=== PATIENT | male | born 1985 | race Caucasian/White ===

== ENCOUNTER 2018-10-16 12:14 | Emergency (ER) | payer BC ==
--- OUTSIDE RECORDS SUMMARY | 2018-10-16 12:46 | XMS REPORT | Continuity of Care Document ---
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 Sen Varghese MD Primary Care Physician Unavailable Payers Type Date Identification Numbers Payment Provider Subscriber Policy Number: [id number] [facility] Anselmo Nazario PayID: [id number] [address] [address] [place] [address] Advance Directives Description No Information Available Problems Date Description Provider Status Onset: 11/11/2012 Benign essential hypertension Iwona Baez MD Active Onset: 10/28/2012 H/O: coagulation defect Iwona Baez MD Active Onset: 10/28/2012 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 Onset: 09/02/2015 Protein C deficiency disease Iwona Baez MD Active Onset: 09/10/2018 Anxiety state Sen Varghese MD Active Family History Date Family Member(s) Problem(s) Comments : (age 38 Father due to [place] Years) Mother No Current Problems Grandfather due to Colon () - maternal Cancer Social History Type Date Description Comments Sex Unknown ETOH Use Denies alcohol use Tobacco Use Start: Unknown Smoking Pot 5X/ WK Smoking Status Reviewed: 09/18/18 Smoking Pot 5X/ WK Allergies, Adverse Reactions, Alerts Description No Known Drug Allergies Medications Medication Date Status Form Strength Qnty SIG Indications Ordering Provider Hydroxyzine HCL 09/10/ Active Tablets 50mg 90tab 1 tab by F41.9 [email or web address] s mouth three MD Sen times a day as needed Prozac 09/10/ Active Capsules 20mg 30cap 1 by mouth F41.9 Varghese, 2018 s every day MD Sen as directed Xarelto 01/04/ Active Tablets 20mg 30tab 1 tab by [email or web address] Halima, 2015 s mouth every MD Sen day with food Amoxicillin 01/06/ Hx Suspension 250mg/5ML 200ml Take 10 ml J02.9 Evette 2017 - Rec by mouth Maryann, 01/16/ every 12 M.D. 2017 hours for 10 days for throat infection Desloratadine 01/04/ Hx Tablets 5mg 30tab 1 tab by [email or web address] Evette, 2015 - s mouth every Maryann, 11/08/ day as M.D. 2017 needed congestion Xarelto 12/14/ Hx Tablets 15mg 42tab 1 tab by [email or web address] Evette 2015 - s mouth twice Maryann, 01/04/ a day x21 M.D. 2016 days Warfarin Sodium 11/11/ Hx Tablets 10mg 30tab / to 1 by Nestor 2012 - s mouth every Iwona 12/14/ day, MD yvette 2015 directed Immunizations CPT Code Status Date Vaccine Lot # [id number] Given 07/16/2018 Influenza Virus Vaccine, Quadrivalent, 36 Mos+, [id number] Given 11/08/2016 Tdap injection [id number] Given 10/15/2014 flu vaccination [id number] Given 06/13/2013 flu vaccination Vital Signs Date Vital Result Comment 09/18/2018 2:30pm BP Systolic 130 mmHg BP Diastolic 72 mmHg Body Temperature 97.8 F Heart Rate 64 /min Respiratory Rate 16 /min Height 68 inches 5'8" Weight 187.00 lb BMI (Body Mass Index) 28.4 kg/m2 BSA (Body Surface Area) 1.99 m2 [place] body weight in kilograms 70 kg O2 % BldC Oximetry 97 % Ra Pain Level 0 09/10/2018 8:47am BP Systolic Sitting Left Arm 130 mmHg BP Diastolic Sitting Left Arm 86 mmHg Body Temperature 97.5 F Heart Rate 117 /min Respiratory Rate 16 /min Height 68 inches 5'8" Weight 186.00 lb BMI (Body Mass Index) 28.3 kg/m2 BSA (Body Surface Area) 1.98 m2 [place] body weight in kilograms 70 kg O2 % BldC Oximetry 98 % 08/01/2018 2:51pm BP Systolic 132 mmHg BP Diastolic 80 mmHg Body Temperature 96.5 F Heart Rate 68 /min Respiratory Rate 18 /min Height 68 inches 5'8" Weight 199.00 lb BMI (Body Mass Index) 30.3 kg/m2 BSA (Body Surface Area) 2.04 m2 [place] body weight in kilograms 70 kg O2 % BldC Oximetry 98 % 07/16/2018 8:40am BP Systolic Sitting Right Arm 150 mmHg BP Diastolic Sitting Right Arm 90 mmHg Body Temperature 97.5 F Heart Rate 97 /min Respiratory Rate 16 /min Height 68 inches 5'8" Weight 204.12 lb BMI (Body Mass Index) 31.0 kg/m2 BSA (Body Surface Area) 2.06 m2 [place] body weight in kilograms 70 kg O2 % BldC Oximetry 98 % 03/23/2017 2:19pm BP Systolic Sitting Left Arm 128 mmHg BP Diastolic Sitting Left Arm 82 mmHg Height 68 inches 5'8" Weight 207.12 lb BMI (Body Mass Index) 31.5 kg/m2 BSA (Body Surface Area) 2.07 m2 [place] body weight in kilograms 70 kg 01/06/2017 11:28am BP Systolic Sitting Right Arm 138 mmHg BP Diastolic Sitting Right Arm 88 mmHg Body Temperature 97.1 F Heart Rate 78 /min Height 68 inches 5'8" Weight 204.50 lb BMI (Body Mass Index) 31.1 kg/m2 BSA (Body Surface Area) 2.06 m2 11/08/2016 10:45am BP Systolic 138 mmHg BP Diastolic 92 mmHg Body Temperature 97.6 F Heart Rate 82 /min Respiratory Rate 18 /min Height 68 inches 5'8" Weight 216.00 lb BMI (Body Mass Index) 32.8 kg/m2 BSA (Body Surface Area) 2.11 m2 O2 % BldC Oximetry 98 % 01/05/2016 9:03am BP Systolic Sitting Left Arm 137 mmHg BP Diastolic Sitting Left Arm 80 mmHg Body Temperature 96.4 F Heart Rate 60 /min Respiratory Rate 16 /min Height 68 inches 5'8" Weight 213.00 lb BMI (Body Mass Index) 32.4 kg/m2 BSA (Body Surface Area) 2.10 m2 12/15/2015 9:16am BP Systolic Sitting Left Arm 148 mmHg BP Diastolic Sitting Left Arm 86 mmHg Heart Rate 64 /min Respiratory Rate 19 /min Height 68 inches 5'8" Weight 213.00 lb BMI (Body Mass Index) 32.4 kg/m2 BSA (Body Surface Area) 2.10 m2 Results Test Date Facility Test Result H/L Range Note LDL Cholesterol 09/12/2018 [facility] Cholesterol 132 mg/dL <200 1, [address] [place] [address] [phone] Triglycerides 81 mg/dL <150 3 HDL Cholesterol 34 mg/dL Low >40 4 LDL-Cholesterol 82 mg/dL < 100 5 Laboratory test 09/12/2018 [facility] Troponin-I < 0.015 [address] ng/[place] [address] [phone] Laboratory test 09/12/2018 [facility] Troponin-I < 0.015 [address] ng/mL [place], [place] [id number] [phone] CBC W/Automated 09/11/2018 [facility] White Blood Count 9.1 K/uL 3.4-[address] [place] [address] [phone] Red Blood Count 5.18 M/uL N 4.20-5.80 Hemoglobin 14.8 gm/dL N 12.8-17.0 Hematocrit 44.5 % N 38.0-48.0 Mean Cell Volume 85.9 fl N 80.0-96.0 Mean Corpuscular HGB 28.6 pg N 27.0-33.0 Mean Corpuscular HGB Conc 33.3 g/dL N 31.7-36.0 Platelet Count 300 K/uL N 155-360 Red Cell Distri Width SD 42.1 fl N 36-51 Red Cell Distri Width %CV 13.7 % N 11.6-15.8 Mean Platelet Volume 9.6 fL N 6.6-10.6 Neut% 61.0 % N 33.0-73.0 Lymph % 29.0 % N 20.0-42.0 Williamson % 7.1 % N 0.0-10.0 Eo% 2.0 % N 0.0-6.6 Bas% 0.9 % N 0.0-1.1 Neut# 5.57 K/uL N 1.8-7.0 Lymph # 2.65 K/uL N 1.0-4.0 Williamson # 0.65 K/uL N 0.0-0.8 Eos # 0.18 K/uL N 0.0-0.5 Baso # 0.08 K/uL N 0.0-0.1 Comprehensive Metabolic 09/11/2018 [facility] Glucose 93 mg/dL N 74-106 Panel [address] [place], [place] [address] [phone] BUN 12 mg/dL N 7-18 Creatinine 0.9 mg/dL N 0.6-1.3 Glom Filtration Rate, Estimate >60 mL/min >60 If >60 mL/min >60 9 BUN/Creat 13.3 ratio Sodium 141 mmol/L N 136-145 Potassium 4.0 mmol/L N 3.5-5.1 Chloride 107 mmol/L N 98-107 Carbon Dioxide 29 mmol/L N 21-32 Anion Gap 5 mEq/L Low 8-16 Calcium 9.0 mg/dL N 8.5-10.1 Total Protein 8.0 g/dL N 6.4-8.2 Albumin 3.9 g/dL N 3.4-5.0 Globulin 4.1 g/dL N 1.9-4.3 Alb/Glob 1.0 ratio Bilirubin,Total 0.5 mg/dL N 0.2-1.0 Sgot/Ast 15 U/L N 15-37 SGPT/Alt 31 U/L N 12-78 Alkaline Phosphatase 63 U/L N 45-117 Laboratory test 09/11/2018 [facility] Troponin-I < 0.015 ng/mL 10 finding [address] [place], [place] [id number] [phone] Protime 09/11/2018 [facility] Protime 14.5 seconds High 12.0-1 [address] [facility] [address] [place] [address] [phone] Inr 1.1 N 0.9-1.1 11 Laboratory test 09/08/2018 [facility] Troponin-I < 0.015 ng/mL 12, 13 finding [address] [place], [place] [id number] [phone] D-Dimer, Quantitative < 0.27 ug/mL 14 Comprehensive Metabolic 09/08/2018 [facility] Glucose 126 mg/dL High 74-106 Panel [address] [place], [place] [address] [phone] BUN 15 mg/dL N 7-18 Creatinine 1.0 mg/dL N 0.6-1.3 Glom Filtration Rate, Estimate >60 mL/min >60 If >60 mL/min >60 15 BUN/Creat 15.0 ratio Sodium 139 mmol/L N 136-145 Potassium 3.6 mmol/L N 3.5-5.1 Chloride 106 mmol/L N 98-107 Carbon Dioxide 27 mmol/L N 21-32 Anion Gap 6 mEq/L Low 8-16 Calcium 8.9 mg/dL N 8.5-10.1 Total Protein 8.0 g/dL N 6.4-8.2 Albumin 3.8 g/dL N 3.4-5.0 Globulin 4.2 g/dL N 1.9-4.3 Alb/Glob 0.9 ratio Bilirubin,Total 0.7 mg/dL N 0.2-1.0 Sgot/Ast 17 U/L N 15-37 SGPT/Alt 43 U/L N 12-78 Alkaline Phosphatase 67 U/L N 45-117 CBC W/Automated Diff 09/08/2018 [facility] White Blood 5.8 K/uL N 3.4-10.[address] [place] [address] [phone] Red Blood Count 4.99 M/uL N 4.20-5.80 Hemoglobin 14.3 gm/dL N 12.8-17.0 Hematocrit 42.8 % N 38.0-48.0 Mean Cell Volume 85.8 fl N 80.0-96.0 Mean Corpuscular HGB 28.7 pg N 27.0-33.0 Mean Corpuscular HGB Conc 33.4 g/dL N 31.7-36.0 Platelet Count 344 K/uL N 155-360 Red Cell Distri Width SD 41.6 fl N 36-51 Red Cell Distri Width %CV 13.6 % N 11.6-15.8 Mean Platelet Volume 9.4 fL N 6.6-10.6 Neut% 66.6 % N 33.0-73.0 Lymph % 22.2 % N 20.0-42.0 Williamson % 8.1 % N 0.0-10.0 Eo% 2.4 % N 0.0-6.6 Bas% 0.7 % N 0.0-1.1 Neut# 3.84 K/uL N 1.8-7.0 Lymph # 1.28 K/uL N 1.0-4.0 Williamson # 0.47 K/uL N 0.0-0.8 Eos # 0.14 K/uL N 0.0-0.5 Baso # 0.04 K/uL N 0.0-0.1 Laboratory test 09/08/2018 [facility] Troponin-I < 0.015 ng/mL 16 finding [address] [place] [address] [phone] Aot Request 09/08/2018 [facility] Aot Request Test(s) added 17 [address] [place] [address] [phone] Tests to be added: d dimer Comprehensive Metabolic 08/27/2018 [facility] Glucose 98 mg/dL N 74-106 18 Panel [address] [place] [address] [phone] BUN 9 mg/dL N 7-18 Creatinine 1.0 mg/dL N 0.6-1.3 Glom Filtration Rate, Estimate >60 mL/min >60 If >60 mL/min >60 19 BUN/Creat 9.0 ratio Sodium 139 mmol/L N 136-145 Potassium 4.2 mmol/L N 3.5-5.1 Chloride 104 mmol/L N 98-107 Carbon Dioxide 28 mmol/L N 21-32 Anion Gap 7 mEq/L Low 8-16 Calcium 8.8 mg/dL N 8.5-10.1 Total Protein 7.4 g/dL N 6.4-8.2 Albumin 4.0 g/dL N 3.4-5.0 Globulin 3.4 g/dL N 1.9-4.3 Alb/Glob 1.2 ratio Bilirubin,Total 0.7 mg/dL N 0.2-1.0 Sgot/Ast 18 U/L N 15-37 SGPT/Alt 27 U/L N 12-78 Alkaline Phosphatase 75 U/L N 45-117 CBC W/Automated Diff 08/27/2018 [facility] White Blood 9.6 K/uL N 3.4-10.5 [address] [place] [address] [phone] Red Blood Count 5.23 M/uL N 4.20-5.80 Hemoglobin 15.0 gm/dL N 12.8-17.0 Hematocrit 45.8 % N 38.0-48.0 Mean Cell Volume 87.6 fl N 80.0-96.0 Mean Corpuscular HGB 28.7 pg N 27.0-33.0 Mean Corpuscular HGB Conc 32.8 g/dL N 31.7-36.0 Platelet Count 178 K/uL N 155-360 Red Cell Distri Width SD 44.8 fl N 36-51 Red Cell Distri Width %CV 14.0 % N 11.6-15.8 Mean Platelet Volume 10.3 fL N 6.6-10.6 Neut% 78.8 % High 33.0-73.0 Lymph % 9.4 % Low 20.0-42.0 Williamson % 11.1 % High 0.0-10.0 Eo% 0.4 % N 0.0-6.6 Bas% 0.3 % N 0.0-1.1 Neut# 7.56 K/uL High 1.8-7.0 Lymph # 0.90 K/uL Low 1.0-4.0 Williamson # 1.06 K/uL High 0.0-0.8 Eos # 0.04 K/uL N 0.0-0.5 Baso # 0.03 K/uL N 0.0-0.1 Slide Review 08/27/2018 [facility] Slide Review (SEE NOTE) [address] [place] [address] [phone] Ua RFX Micro & 08/27/2018 [facility] Urine Color YELLOW Yellow Culture II [address] [place] [address] [phone] Urine Clarity CLEAR Clear Urine Glucose - Dipstick NEGATIVE mg/dL Negative Urine Bilirubin - Dipstick NEGATIVE Negative Urine Ketone NEGATIVE mg/dL Negative Urine Specific [place] 1.015 N 1.010-1.030 Urine Blood NEGATIVE Negative Urine PH 7.5 N 6.5-7.5 Urine Protein - Dipstick NEGATIVE mg/dL Negative Urine Urobilinogen - Dipstick 0.2 E.U./dL N 0.2-1.0 Urine Nitrite - Dipstick NEGATIVE Negative Urine Leuk Esterase NEGATIVE Negative Source: URINE, CLEAN CAT <SEE NOTE> 21 CBC W/Automated 08/01/[address] White Blood 7.4 K/uL N 3.4- 10.5 [address] [place] [address] [phone] Red Blood Count 4.91 M/uL N 4.20-5.80 Hemoglobin 14.1 gm/dL N 12.8-17.0 Hematocrit 42.9 % N 38.0-48.0 Mean Cell Volume 87.4 fl N 80.0-96.0 Mean Corpuscular HGB 28.7 pg N 27.0-33.0 Mean Corpuscular HGB Conc 32.9 g/dL N 31.7-36.0 Platelet Count 223 K/uL N 155-360 Red Cell Distri Width SD 44.0 fl N 36-51 Red Cell Distri Width %CV 14.1 % N 11.6-15.8 Mean Platelet Volume 10.4 fL N 6.6-10.6 Neut% 54.4 % N 33.0-73.0 Lymph % 32.5 % N 20.0-42.0 Williamson % 8.7 % N 0.0-10.0 Eo% 3.7 % N 0.0-6.6 Bas% 0.7 % N 0.0-1.1 Neut# 4.03 K/uL N 1.8-7.0 Lymph # 2.40 K/uL N 1.0-4.0 Williamson # 0.64 K/uL N 0.0-0.8 Eos # 0.27 K/uL N 0.0-0.5 Baso # 0.05 K/uL N 0.0-0.1 Comprehensive Metabolic 08/01/[email or web address] Glucose 99 mg/dL N 74 -106 Panel [address] [place] [address] [phone] BUN 21 mg/dL High 7-18 Creatinine 1.1 mg/dL N 0.6-1.3 Glom Filtration Rate, Estimate >60 mL/min >60 If >60 mL/min >60 23 BUN/Creat 19.0 ratio Sodium 138 mmol/L N 136-145 Potassium 3.8 mmol/L N 3.5-5.1 Chloride 102 mmol/L N 98-107 Carbon Dioxide 29 mmol/L N 21-32 Anion Gap 7 mEq/L Low 8-16 Calcium 8.8 mg/dL N 8.5-10.1 Total Protein 7.8 g/dL N 6.4-8.2 Albumin 4.3 g/dL N 3.4-5.0 Globulin 3.5 g/dL N 1.9-4.3 Alb/Glob 1.2 ratio Bilirubin,Total 0.6 mg/dL N 0.2-1.0 Sgot/Ast 19 U/L N 15-37 SGPT/Alt 30 U/L N 12-78 Alkaline Phosphatase 68 U/L N 45-117 LDL Cholesterol Profile 08/01/[address] Cholesterol 155 mg/dL <482 81 [address] [place], [place] [address] [phone] Triglycerides 88 mg/dL <150 25 HDL Cholesterol 43 mg/dL >40 26 LDL-Cholesterol 94 mg/dL < 100 27 Glycohemoglobin A1c 08/01/[address] Glycohemoglobin 5.7 % N 4.2-6.3 28 4077 [facility] (A1c) [place] [address] [phone] eAG 117 mg/dL Throat 01/06/[address] Throat BETA Abnormal 29, [address] [place] [address] St[place] [address] Screen <SEE NOTE> [phone] Quantity MODERATE N Recommended Therapy: PENICILLIN OR AM <SEE NOTE> N 31 Alternative Therapy: ERYTHROMYCIN MAY <SEE NOTE> N 32 Comprehensive 11/08/2016 [facility] Glucose 109 mg/dL High 74-106 33 Metabolic Panel [address] [place], [place] [address] [phone] BUN 20 mg/dL High 7-18 Creatinine 1.0 mg/dL N 0.6-1.3 Glom Filtration Rate, Estimate >60 mL/min >60 If >60 mL/min >60 34 BUN/Creat 20.0 ratio Sodium 142 mmol/L N 136-145 Potassium 3.7 mmol/L N 3.5-5.1 Chloride 107 mmol/L N 98-107 Carbon Dioxide 29 mmol/L N 21-32 Anion Gap 6 mEq/L Low 8-16 Calcium 8.3 mg/dL Low 8.5-10.1 Total Protein 7.2 g/dL N 6.4-8.2 Albumin 4.0 g/dL N 3.4-5.0 Globulin 3.2 g/dL N 1.9-4.3 Alb/Glob 1.3 ratio Bilirubin,Total 0.3 mg/dL N 0.2-1.0 Sgot/Ast 18 U/L N 15-37 SGPT/Alt 28 U/L N 12-78 Alkaline Phosphatase 63 U/L N 45-117 Reflex add FT3? Y Reflex add FT4? Y Glycohemoglobin A1c 11/08/2016 [facility] Glycohemoglobin 6.0 % N 4.2-6.[address] (A1c) [place] [address] [phone] eAG 126 mg/dL LDL Cholesterol Profile 11/08/2016 [facility] Cholesterol 177 mg/dL <[address] [place], [place] [address] [phone] Triglycerides 170 mg/dL High <150 37 HDL Cholesterol 38 mg/dL Low >40 38 LDL-Cholesterol 105 mg/dL < 100 39 Reflex add FT3? Y Reflex add FT4? Y TSH Reflex FT4 11/08/2016 [facility] Thyroid Stim 0.78 uIU/mL N 0.30-4.20 And/Or FT3 [address] Hormone [place], [place] [address] [phone] Reflex add FT3? Y Reflex add FT4? Y Comprehensive Metabolic 12/15/2015 [facility] Glucose 97 mg/dL 74-[address] [place], [place] [address] [phone] BUN 16 mg/dL 7-18 Creatinine 0.9 mg/dL 0.6-1.3 Glom Filtration Rate, Estimate >60 mL/min >60 If >60 mL/min >60 40 BUN/Creat 17.7 ratio Sodium 140 mmol/L 136-145 Potassium 3.9 mmol/L 3.5-5.1 Chloride 105 mmol/L 98-107 Carbon Dioxide 29 mmol/L 21-32 Anion Gap 6 mEq/L Low 8-16 Calcium 8.7 mg/dL 8.5-10.1 Total Protein 7.7 g/dL 6.4-8.2 Albumin 4.3 g/dL 3.4-5.0 Globulin 3.4 g/dL 1.9-4.3 Alb/Glob 1.3 ratio Bilirubin,Total 0.5 mg/dL 0.2-1.0 Sgot/Ast 27 U/L 15-37 SGPT/Alt 33 U/L 12-78 Alkaline Phosphatase 61 U/L 45-117 CBC W/Automated Diff 12/15/2015 [facility] White Blood 6.7 K/uL 3.4-10.[address] [place] [address] [phone] Red Blood Count 4.88 M/uL 4.20-5.80 Hemoglobin 14.1 gm/dL 12.8-17.0 Hematocrit 42.1 % 38.0-48.0 Mean Cell Volume 86.3 fl 80.0-96.0 Mean Corpuscular HGB 28.9 pg 27.0-33.0 Mean Corpuscular HGB Conc 33.5 g/dL 31.7-36.0 Platelet Count 187 K/uL 150-400 Red Cell Distri Width SD 44.0 fl 36-51 Red Cell Distri Width %CV 14.1 % 11.6-15.8 Mean Platelet Volume 10.7 fL High 6.6-10.6 Neut% 61.7 % 33.0-73.0 Lymph % 27.0 % 17.0-56.0 Williamson % 7.3 % 0.0-10.0 Eo% 3.3 % 0.0-5.0 Bas% 0.7 % 0.1-1.0 Neut# 4.13 K/uL 1.8-7.0 Lymph # 1.81 K/uL 1.8-7.0 Williamson # 0.49 K/uL 0.0-0.8 Eos # 0.22 K/uL 0.0-0.5 Baso # 0.05 K/uL Low 0.1-0.2 Protime 12/15/2015 [facility] Protime 13.7 seconds 12.1-14.9 [address] [place] [address] [phone] Inr 1.0 0.9-1.1 41 Laboratory test 12/15/2015 [facility] Act Partial 27.3 23.9-34.3 42 finding [address] [place] [address] [phone] LDL Cholesterol 12/15/2015 [facility] Cholesterol 188 mg/dL <200 43 Profile [address] [place] [address] [phone] Triglycerides 124 mg/dL <150 44 HDL Cholesterol 36 mg/dL Low >40 45 LDL-Cholesterol 127 mg/dL < 100 46 Protime 06/04/2015 [facility] Protime 26.4 seconds High 12.0-14.4 [address] [place] [address] [phone] Inr 2.4 High 0.9-1.1 47 Laboratory test 04/30/2015 [facility] Inr 2.5 High 0.9-1.1 48 finding [address] [place] [address] [phone] Protime 04/30/2015 [facility] Protime 27.6 seconds High 12.0-14.4 [address] [place] [address] [phone] Protime 04/03/2015 [facility] Protime 25.2 seconds High 12.0-14.4 [address] [place] [address] [phone] Inr 2.3 High 0.9-1.1 49 Protime 03/19/2015 [facility] Protime 33.6 seconds High 12.0-14.4 [address] [place] [address] [phone] Inr 3.3 High 0.9-1.1 50 Protime 03/05/2015 [facility] Protime 38.8 seconds High 12.1-14.9 [address] [place] [address] [phone] Inr 3.9 High 0.9-1.1 51 Protime 02/19/2015 [facility] Protime 22.1 seconds High 12.1-14.9 [address] [place] [address] [phone] Inr 1.9 High 0.9-1.1 52 Protime 02/09/2015 [facility] Protime 18.4 seconds High 12.0-14.4 [address] [place], [place] [address] [phone] Inr 1.5 High 0.9-1.1 53 Protime 12/04/2014 N2N/CCD Import Inr 2.7 High 0.9-1.1 54 Protime 28.1 s High 12.0-14.4 Basic Metabolic Panel 10/29/2014 N2N/CCD Import Anion Gap 6 mEq/L Low 8- 16 BUN 15 mg/dL 7-18 BUN/Creat 15.0 ratio Calcium 8.9 mg/dL 8.5-10.1 Carbon Dioxide 28 mmol/L 21-32 Chloride 106 mmol/L 98-107 Creatinine 1.0 mg/dL 0.6-1.3 Glom Filtration Rate, Estimate >60 mL/min >60 Glucose 96 mg/dL 74-106 If >60 mL/min >60 55 Potassium 3.9 mmol/L 3.5-5.1 Sodium 140 mmol/L 136-145 CBC 10/29/2014 N2N/CCD Import Hematocrit 42.3 % 38.0-48.0 Hemoglobin 13.9 gm/dL 12.8-17.0 Mean Cell Volume 87.2 fl 80.0-96.0 Mean Corpuscular HGB 28.7 pg 27.0-33.0 Mean Corpuscular HGB Conc 32.9 g/dL 31.7-36.0 Mean Platelet Volume 10.5 fL 6.6-10.6 Platelet Count 186 K/uL 150-400 Red Blood Count 4.85 M/uL 4.20-5.80 Red Cell Distri Width %CV 13.6 % 11.6-15.8 White Blood Count 6.6 K/uL 3.4-10.5 LDL Cholesterol Profile 10/29/2014 N2N/CCD Import Cholesterol 182 mg/dL < 200 56 HDL Cholesterol 39 mg/dL > 40 57 LDL-Cholesterol 123 mg/dL < 100 58 Triglycerides 100 mg/dL < 150 59 Liver Function Tests 10/29/2014 N2N/CCD Import Alb/Glob 1.5 ratio Albumin 4.4 g/dL 3.4-5.0 Alkaline Phosphatase 63 U/L 45-117 Bilirubin,Direct < 0.1 mg/dL 0.0-0.2 Bilirubin,Indirect 0.4 mg/dL 0.0-0.9 Bilirubin,Total 0.5 mg/dL 0.2-1.0 Globulin 2.9 g/dL 1.9-4.3 SGPT/Alt 32 U/L 12-78 Sgot/Ast 29 U/L 15-37 Total Protein 7.3 g/dL 6.4-8.2 Protime 10/29/2014 N2N/CCD Import Inr 2.0 High 0.9-1.1 60 Protime 22.7 s High 12.1-14.9 Protime 10/02/2014 N2N/CCD Import Inr 2.6 High 0.9-1.1 61 Protime 27.4 s High 12.1-14.9 Protime 08/21/2014 N2N/CCD Import Inr 2.2 High 0.9-1.1 62 Protime 24.1 s High 12.1-14.9 Protime 06/23/2014 N2N/CCD Import Inr 2.2 High 0.9-1.1 63 Protime 24.2 s High 12.1-14.9 Protime 06/09/2014 N2N/CCD Import Inr 2.6 High 0.9-1.1 64 Protime 27.4 s High 12.1-14.9 Protime 05/29/2014 N2N/CCD Import Inr 1.5 High 0.9-1.1 65 Protime 18.1 s High 12.1-14.9 Protime 03/20/2014 N2N/CCD Import Inr 2.3 High 0.9-1.1 66 Protime 25.3 s High 12.0-14.4 Protime 02/28/2014 N2N/CCD Import Inr 3.4 High 0.9-1.1 67 Protime 33.6 s High 12.1-14.9 Protime 01/30/2014 N2N/CCD Import Inr 2.3 High 0.9-1.1 68 Protime 24.9 s High 12.1-14.9 Protime 01/15/2014 N2N/CCD Import Inr 1.9 High 0.9-1.1 69 Protime 21.2 s High 12.1-14.9 Protime 01/01/2014 N2N/CCD Import Inr 2.0 High 0.9-1.1 70 Protime 22.2 s High 12.1-14.9 Protime 12/19/2013 N2N/CCD Import Inr 1.9 High 0.9-1.1 71 Protime 21.8 s High 12.1-14.9 Protime 11/28/2013 N2N/CCD Import Inr 1.5 High 0.9-1.1 72 Protime 18.0 s High 12.0-14.4 Protime 10/15/2013 N2N/CCD Import Inr 2.5 High 0.9-1.1 73 Protime 27.2 s High 12.0-14.4 Laboratory test finding 09/09/2013 N2N/CCD Import Inr 2.82 High 0.85- 1.06 Laboratory test finding 08/15/2013 N2N/CCD Import Inr 1.75 High 0.85- 1.06 74 Laboratory test finding 07/19/2013 N2N/CCD Import Inr 2.40 High 0.85- 1.06 75 Laboratory test finding 06/19/2013 N2N/CCD Import Inr 2.42 High 0.87- 0.97 Laboratory test finding 06/04/2013 N2N/CCD Import Inr 2.00 High 0.87- 0.97 Laboratory test finding 05/30/2013 N2N/CCD Import Inr 3.36 High 0.87- 0.97 Inr/Protime 05/21/2013 N2N/CCD Import Inr 3.63 High 0.87-0.97 Laboratory test finding 04/19/2013 N2N/CCD Import Inr 2.26 High 0.87- 0.97 Laboratory test finding 03/19/2013 N2N/CCD Import Inr 2.45 High 0.87- 0.97 Laboratory test finding 03/12/2013 N2N/CCD Import Inr 1.54 High 0.87- 0.97 Laboratory test finding 02/05/2013 N2N/CCD Import Inr 2.00 High 0.87- 0.97 Laboratory test finding 01/03/2013 N2N/CCD Import Inr 2.01 High 0.87- 0.97 Laboratory test finding 12/04/2012 N2N/CCD Import Inr 2.50 High 0.87- 0.97 Laboratory test finding 11/19/2012 N2N/CCD Import Inr 3.51 High 0.87- 0.97 76 Laboratory test finding 11/12/2012 N2N/CCD Import Inr 2.88 High 0.87- 0.97 77 Laboratory test finding 11/01/2012 N2N/CCD Import Inr 3.81 High 0.87- 0.97 78 Inr/Protime 10/29/2012 N2N/CCD Import Inr 2.36 High 0.87-0.97 79 1 CHEST PAIN 2 Reference Guidelines*: Desirable: ........... < 200 mg/dL Borderline High: ..... 200-239 mg/dL High: ................ >=240 mg/dL * The National Cholesterol Education Program (NCEP) 3 Reference Guidelines*: Normal: ............. < 150 mg/dL Borderline High: .... 150-199 mg/dL High: ............... 200-499 mg/dL Very High: .......... > 500 mg/dL * Source: National Cholesterol Education Program (NCEP) 4 Reference Guidelines*: Low HDL: ..... < 40 mg/dL Normal: ..... 40-60 mg/dL Desirable: ... > 60 mg/dL *The National Cholesterol Education Program(NCEP) 5 Reference Guidelines*: Optimal:........... <100 mg/dL Near Optimal....... 100-129 mg/dL Borderline High.... 130-159 mg/dL High............... 160-189 mg/dL Very High.......... >=190 mg/dL * Source: National Cholesterol Education Program (NCEP) 6 0.0 - 0.045 ng/mL: Normal 0.046 - 0.5 ng/mL: Suggestive 0.6 - 1.5 ng/mL: Consistent 7 0.0 - 0.045 ng/mL: Normal 0.046 - 0.5 ng/mL: Suggestive 0.6 - 1.5 ng/mL: Consistent 8 CP WITH WARNESS,NAUSEA 9 Note: Persistent reduction for 3 months or more in an eGFR <60 mL/min/1.73 m2 defines CKD. Patients with eGFR values >/=60 mL/min/1.73 m2 may also have CKD if evidence of persistent proteinuria is present. The original MDRD equation for estimated GFR is not valid for patients less than 18 years of age. Additional information may be found at www.kdoqi.org. 10 0.0 - 0.045 ng/mL: Normal 0.046 - 0.5 ng/mL: Suggestive 0.6 - 1.5 ng/mL: Consistent 11 THERAPEUTIC INR RANGE: 2.0 - 3.0 DVT, Pulmonary embolus, prophylaxis against venous thrombosis or systemic embolization in high risk patients. 2.5 - 3.5 Mechanical heart valves 12 WEAK,LIGHT HEADED 13 0.0 - 0.045 ng/mL: Normal 0.046 - 0.5 ng/mL: Suggestive 0.6 - 1.5 ng/mL: Consistent 14 <=0.49 ug/mL - Low likelihood of DIC, DVT or Pulmonary Embolism >0.49 ug/mL - Additional testing should be done to rule out DIC, DVT, or Pulmonary embolism as clinically indicated. ([facility] has established a 97.89% negative predictive value for thrombotic disease when a cutoff value of 0.5 ug/mL is used.) 15 Note: Persistent reduction for 3 months or more in an eGFR <60 mL/min/1.73 m2 defines CKD. Patients with eGFR values >/=60 mL/min/1.73 m2 may also have CKD if evidence of persistent proteinuria is present. The original MDRD equation for estimated GFR is not valid for patients less than 18 years of age. Additional information may be found at www.[email or web address]. 16 0.0 - 0.045 ng/mL: Normal 0.046 - 0.5 ng/mL: Suggestive 0.6 - 1.5 ng/mL: Consistent 17 Tests: d dimer Instructions: 18 BACK PAIN POSS KINDEY INFECT 19 Note: Persistent reduction for 3 months or more in an eGFR <60 mL/min/1.73 m2 defines CKD. Patients with eGFR values >/=60 mL/min/1.73 m2 may also have CKD if evidence of persistent proteinuria is present. The original MDRD equation for estimated GFR is not valid for patients less than 18 years of age. Additional information may be found at www.[email or web address]. 20 Instrument flagged sample for slide review. Less than 10% Bands seen, no other immature WBC's seen. RBC morphology essentially normal. Platelet estimate=NORMAL 21 URINE, CLEAN CATCH 22 Z00.00 23 Note: Persistent reduction for 3 months or more in an eGFR <60 mL/min/1.73 m2 defines CKD. Patients with eGFR values >/=60 mL/min/1.73 m2 may also have CKD if evidence of persistent proteinuria is present. The original MDRD equation for estimated GFR is not valid for patients less than 18 years of age. Additional information may be found at www.kdoqi.org. 24 Reference Guidelines*: Desirable: ........... < 200 mg/dL Borderline High: ..... 200-239 mg/dL High: ................ >=240 mg/dL * The National Cholesterol Education Program (NCEP) 25 Reference Guidelines*: Normal: ............. < 150 mg/dL Borderline High: .... 150-199 mg/dL High: ............... 200-499 mg/dL Very High: .......... > 500 mg/dL * Source: National Cholesterol Education Program (NCEP) 26 Reference Guidelines*: Low HDL: ..... < 40 mg/dL Normal: ..... 40-60 mg/dL Desirable: ... > 60 mg/dL *The National Cholesterol Education Program(NCEP) 27 Reference Guidelines*: Optimal:........... <100 mg/dL Near Optimal....... 100-129 mg/dL Borderline High.... 130-159 mg/dL High............... 160-189 mg/dL Very High.......... >=190 mg/dL * Source: National Cholesterol Education Program (NCEP) 28 Elevated levels of HbA1c suggest the need for more aggressive treatment of glycemia. The [place] [employer] recommends that a primary goal of therapy should be a HbA1c of <7% and that physicians should re-evaluate the treatment regimen in patients with HbA1c values consistently >8%. 29 J02.9 30 BETA STREPTOCOCCUS GROUP A 31 PENICILLIN OR AMPICILLIN. 32 ERYTHROMYCIN MAY BE USED IN PENICILLIN ALLERGIC INDIVIDUALS 33 I10 34 Note: Persistent reduction for 3 months or more in an eGFR <60 mL/min/1.73 m2 defines CKD. Patients with eGFR values >/=60 mL/min/1.73 m2 may also have CKD if evidence of persistent proteinuria is present. The original MDRD equation for estimated GFR is not valid for patients less than 18 years of age. Additional information may be found at www.kdoqi.org. 35 Elevated levels of HbA1c suggest the need for more aggressive treatment of glycemia. The [place] [employer] recommends that a primary goal of therapy should be a HbA1c of <7% and that physicians should re-evaluate the treatment regimen in patients with HbA1c values consistently >8%. 36 Reference Guidelines*: Desirable: ........... < 200 mg/dL Borderline High: ..... 200-239 mg/dL High: ................ >=240 mg/dL * The National Cholesterol Education Program (NCEP) 37 Reference Guidelines*: Normal: ............. < 150 mg/dL Borderline High: .... 150-199 mg/dL High: ............... 200-499 mg/dL Very High: .......... > 500 mg/dL * Source: National Cholesterol Education Program (NCEP) 38 Reference Guidelines*: Low HDL: ..... < 40 mg/dL Normal: ..... 40-60 mg/dL Desirable: ... > 60 mg/dL *The National Cholesterol Education Program(NCEP) 39 Reference Guidelines*: Optimal:........... <100 mg/dL Near Optimal....... 100-129 mg/dL Borderline High.... 130-159 mg/dL High............... 160-189 mg/dL Very High.......... >=190 mg/dL * Source: National Cholesterol Education Program (NCEP) 40 Note: Persistent reduction for 3 months or more in an eGFR <60 mL/min/1.73 m2 defines CKD. Patients with eGFR values >/=60 mL/min/1.73 m2 may also have CKD if evidence of persistent proteinuria is present. The original MDRD equation for estimated GFR is not valid for patients less than 18 years of age. Additional information may be found at www.kdoqi.org. 41 THERAPEUTIC INR RANGE: 2.0 - 3.0 DVT, Pulmonary embolus, prophylaxis against venous thrombosis or systemic embolization in high risk patients. 2.5 - 3.5 Mechanical heart valves 42 QUERY: Anticoagulant Therapy? N QUERY: Date of Last Dose: QUERY: Time of Last Dose: 43 Reference Guidelines*: Desirable: ........... < 200 mg/dL Borderline High: ..... 200-239 mg/dL High: ................ >=240 mg/dL * The National Cholesterol Education Program (NCEP) 44 Reference Guidelines*: Normal: ............. < 150 mg/dL Borderline High: .... 150-199 mg/dL High: ............... 200-499 mg/dL Very High: .......... > 500 mg/dL * Source: National Cholesterol Education Program (NCEP) 45 Reference Guidelines*: Low HDL: ..... < 40 mg/dL Normal: ..... 40-60 mg/dL Desirable: ... > 60 mg/dL *The National Cholesterol Education Program(NCEP) 46 Reference Guidelines*: Optimal:........... <100 mg/dL Near Optimal....... 100-129 mg/dL Borderline High.... 130-159 mg/dL High............... 160-189 mg/dL Very High.......... >=190 mg/dL * Source: National Cholesterol Education Program (NCEP) 47 THERAPEUTIC INR RANGE: 2.0 - 3.0 DVT, Pulmonary embolus, prophylaxis against venous thrombosis or systemic embolization in high risk patients. 2.5 - 3.5 Mechanical heart valves 48 THERAPEUTIC INR RANGE: 2.0 - 3.0 DVT, Pulmonary embolus, prophylaxis against venous thrombosis or systemic embolization in high risk patients. 2.5 - 3.5 Mechanical heart valves 49 THERAPEUTIC INR RANGE: 2.0 - 3.0 DVT, Pulmonary embolus, prophylaxis against venous thrombosis or systemic embolization in high risk patients. 2.5 - 3.5 Mechanical heart valves 50 THERAPEUTIC INR RANGE: 2.0 - 3.0 DVT, Pulmonary embolus, prophylaxis against venous thrombosis or systemic embolization in high risk patients. 2.5 - 3.5 Mechanical heart valves 51 THERAPEUTIC INR RANGE: 2.0 - 3.0 DVT, Pulmonary embolus, prophylaxis against venous thrombosis or systemic embolization in high risk patients. 2.5 - 3.5 Mechanical heart valves 52 THERAPEUTIC INR RANGE: 2.0 - 3.0 DVT, Pulmonary embolus, prophylaxis against venous thrombosis or systemic embolization in high risk patients. 2.5 - 3.5 Mechanical heart valves 53 THERAPEUTIC INR RANGE: 2.0 - 3.0 DVT, Pulmonary embolus, prophylaxis against venous thrombosis or systemic embolization in high risk patients. 2.5 - 3.5 Mechanical heart valves 54 THERAPEUTIC INR RANGE: 2.0 - 3.0 DVT, Pulmonary embolus, prophylaxis against venous thrombosis or systemic embolization in high risk patients. 2.5 - 3.5 Mechanical heart valves 55 Note: Persistent reduction for 3 months or more in an eGFR <60 mL/min/1.73 m2 defines CKD. Patients with eGFR values >/=60 mL/min/1.73 m2 may also have CKD if evidence of persistent proteinuria is present. The original MDRD equation for estimated GFR is not valid for patients less than 18 years of age. Additional information may be found at www.kdoqi.org. 56 Reference Guidelines*: Desirable: ........... < 200 mg/dL Borderline High: ..... 200-239 mg/dL High: ................ >=240 mg/dL * The National Cholesterol Education Program (NCEP) 57 Reference Guidelines*: Low HDL: ..... < 40 mg/dL Normal: ..... 40-60 mg/dL Desirable: ... > 60 mg/dL *The National Cholesterol Education Program(NCEP) 58 Reference Guidelines*: Optimal:........... <100 mg/dL Near Optimal....... 100-129 mg/dL Borderline High.... 130-159 mg/dL High............... 160-189 mg/dL Very High.......... >=190 mg/dL * Source: National Cholesterol Education Program ( NCEP) 59 Reference Guidelines*: Normal: ............. < 150 mg/dL Borderline High: .... 150-199 mg/dL High: ............... 200-499 mg/dL Very High: .......... > 500 mg/dL * Source: National Cholesterol Education Program (NCEP) 60 THERAPEUTIC INR RANGE: 2.0 - 3.0 DVT, Pulmonary embolus, prophylaxis against venous thrombosis or systemic embolization in high risk patients. 2.5 - 3.5 Mechanical heart valves 61 THERAPEUTIC INR RANGE: 2.0 - 3.0 DVT, Pulmonary embolus, prophylaxis against venous thrombosis or systemic embolization in high risk patients. 2.5 - 3.5 Mechanical heart valves 62 THERAPEUTIC INR RANGE: 2.0 - 3.0 DVT, Pulmonary embolus, prophylaxis against venous thrombosis or systemic embolization in high risk patients. 2.5 - 3.5 Mechanical heart valves 63 THERAPEUTIC INR RANGE: 2.0 - 3.0 DVT, Pulmonary embolus, prophylaxis against venous thrombosis or systemic embolization in high risk patients. 2.5 - 3.5 Mechanical heart valves 64 THERAPEUTIC INR RANGE: 2.0 - 3.0 DVT, Pulmonary embolus, prophylaxis against venous thrombosis or systemic embolization in high risk patients. 2.5 - 3.5 Mechanical heart valves 65 THERAPEUTIC INR RANGE: 2.0 - 3.0 DVT, Pulmonary embolus, prophylaxis against venous thrombosis or systemic embolization in high risk patients. 2.5 - 3.5 Mechanical heart valves 66 THERAPEUTIC INR RANGE: 2.0 - 3.0 DVT, Pulmonary embolus, prophylaxis against venous thrombosis or systemic embolization in high risk patients. 2.5 - 3.5 Mechanical heart valves 67 THERAPEUTIC INR RANGE: 2.0 - 3.0 DVT, Pulmonary embolus, prophylaxis against venous thrombosis or systemic embolization in high risk patients. 2.5 - 3.5 Mechanical heart valves 68 THERAPEUTIC INR RANGE: 2.0 - 3.0 DVT, Pulmonary embolus, prophylaxis against venous thrombosis or systemic embolization in high risk patients. 2.5 - 3.5 Mechanical heart valves 69 THERAPEUTIC INR RANGE: 2.0 - 3.0 DVT, Pulmonary embolus, prophylaxis against venous thrombosis or systemic embolization in high risk patients. 2.5 - 3.5 Mechanical heart valves 70 THERAPEUTIC INR RANGE: 2.0 - 3.0 DVT, Pulmonary embolus, prophylaxis against venous thrombosis or systemic embolization in high risk patients. 2.5 - 3.5 Mechanical heart valves 71 THERAPEUTIC INR RANGE: 2.0 - 3.0 DVT, Pulmonary embolus, prophylaxis against venous thrombosis or systemic embolization in high risk patients. 2.5 - 3.5 Mechanical heart valves 72 THERAPEUTIC INR RANGE: 2.0 - 3.0 DVT, Pulmonary embolus, prophylaxis against venous thrombosis or systemic embolization in high risk patients. 2.5 - 3.5 Mechanical heart valves 73 THERAPEUTIC INR RANGE: 2.0 - 3.0 DVT, Pulmonary embolus, prophylaxis against venous thrombosis or systemic embolization in high risk patients. 2.5 - 3.5 Mechanical heart valves 74 Please note the change in the INR reference range effective 13. 75 Please note the change in the INR reference range effective 13. 76 Please note the change in INR reference range effective 12. The INR(International Normalized Ratio) was adopted by the World Health Organization (WHO) in 1982 as a standardized system of reporting PT (Prothrombin Time). The Centers for Disease Control (CDC) states that reporting of PT results in INR only is the preferred method. Recommended INR for Patients on Oral Anticoagulants Prophylaxis 2.0 - 3.0 Treatment of thrombosis 2.0 - 3.0 Prevention of embolism 2.0 - 3.0 Prevention of embolism from prosthetic heart valves 2.5 - 3.5 77 Please note the change in INR reference range effective 12. The INR(International Normalized Ratio) was adopted by the World Health Organization (WHO) in 1982 as a standardized system of reporting PT (Prothrombin Time). The Centers for Disease Control (CDC) states that reporting of PT results in INR only is the preferred method. Recommended INR for Patients on Oral Anticoagulants Prophylaxis 2.0 - 3.0 Treatment of thrombosis 2.0 - 3.0 Prevention of embolism 2.0 - 3.0 Prevention of embolism from prosthetic heart valves 2.5 - 3.5 78 Please note the change in INR reference range effective 12. The INR(International Normalized Ratio) was adopted by the World Health Organization (WHO) in 1982 as a standardized system of reporting PT (Prothrombin Time). The Centers for Disease Control (CDC) states that reporting of PT results in INR only is the preferred method. Recommended INR for Patients on Oral Anticoagulants Prophylaxis 2.0 - 3.0 Treatment of thrombosis 2.0 - 3.0 Prevention of embolism 2.0 - 3.0 Prevention of embolism from prosthetic heart valves 2.5 - 3.5 79 Please note the change in INR reference range effective 12. The INR(International Normalized Ratio) was adopted by the World Health Organization (WHO) in 1983 as a standardized system of reporting PT (Prothrombin Time). The Centers for Disease Control (CDC) states that reporting of PT results in INR only is the preferred method. Recommended INR for Patients on Oral Anticoagulants Prophylaxis 2.0 - 3.0 Treatment of thrombosis 2.0 - 3.0 Prevention of embolism 2.0 - 3.0 Prevention of embolism from prosthetic heart valves 2.5 - 3.5 Procedures Date Code Description Status 09/10/2018 12731 Brief Emotional/Behav Assessment W/ Scoring Doc Per Completed Standard Inst 08/01/2018 83090 Brief Emotional/Behav Assessment W/ Scoring Doc Per Completed Standard Inst Encounters Type Date Location Provider Dx Diagnosis Office Visit 09/18/2018 Family Sen Potts MD F41.9 Anxiety disorder, 2:30p Flynn VARGAS unspecified Office Visit 09/10/2018 Sen Benitez MD F41.9 Anxiety disorder, 8:45a Flynn VARGAS unspecified M54.5 Low back pain R94.31 Abnormal electrocardiogram [ECG] [EKG] Office Visit 08/01/2018 2:45p Family Sen Tee MD E86.[address] F41.1 Generalized anxiety disorder Office Visit 07/16/2018 8:30a Family Sen Potts, Z00.00 Encntr for Flynn VARGAS MD general adult medical exam w/o abnormal findings D68.59 Other primary thrombophilia I83.92 Asymptomatic varicose veins of left lower extremity Z23 Encounter for immunization R03.0 Elevated blood-pressure reading, w/o diagnosis of htn E66.9 Obesity, unspecified Office Visit 03/23/2017 2:15p Family [facility] Maryann Alas, Z00.00 Encntr for Flynn VARGAS M.D. general adult medical exam w/o abnormal findings D68.59 Other primary thrombophilia Office Visit 01/06/2017 11:30a [facility] Shea, J02.9 Acute pharyngitis, [place] ALICIA Estefany J., unspecified [employer]-C Office Visit 11/08/2016 10:45a [facility] Maryann Alas, I10 Essential Flynn VARGAS M.D. (primary) hypertension D68.59 Other primary thrombophilia Z23 Encounter for immunization Office Visit 01/05/2016 9:00a [facility] Maryann Alas, I10 Essential (primary) Flynn VARGAS M.D. hypertension D68.59 Other primary thrombophilia J30.9 Allergic rhinitis, unspecified Office Visit 12/15/2015 9:00a [facility] Maryann Alas, Z00.01 Encounter for Flynn VARGAS M.D. general adult medical exam w abnormal findings I10 Essential (primary) hypertension D68.59 Other primary thrombophilia Plan of Treatment Future Appointment(s):12/18/2018 3:30 pm - Sen Varghese MD at [facility]09/18/2018 - Sen Varghese MDF41.9 Anxiety disorder, unspecified
[2018-10-16 12:50] VITALS: BP 143/88
--- NOTE | 2018-10-16 13:03 | UC ---
Throat Pain/Nasal Ernst HPI - HPI Summary HPI Summary: sore throat x 3 days fever, chills, body aches, no cough , no runny nose - History of Current Complaint Chief Complaint: UCRespiratory Stated Complaint: ST Time Seen by Provider: 10/16/18 12:56 Hx Obtained From: Patient Onset/Duration: Gradual Onset, Lasting Days - 3, Still Present Severity: Moderate Pain Intensity: 8 Cough: None Associated Signs & Symptoms: Positive: Fever. 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 Negative: Dental Pain, Ear Ache, Nasal Discharge, Sinus Congestion, Sinus Pain/Tenderness Respiratory: Positive: Negative Is Patient Immunocompromised?: No Physical Exam Triage Information Reviewed: Yes Appearance: Well-Appearing, No Pain Distress, Well-Nourished Vital Signs: Initial Vital Signs Temp 98.2 F 10/16/18 12:47 Pulse 73 10/16/18 12:47 Resp 16 10/16/18 12:47 BP 143/88 10/16/18 12:47 Pulse Ox 99 10/16/18 12:47 Vital Signs Reviewed: Yes Eye Exam: Normal Eyes: Positive: Conjunctiva Clear ENT: Positive: Normal ENT inspection, Hearing grossly normal, Pharyngeal erythema, TMs normal. Negative: Nasal congestion, Nasal drainage, TM bulging, TM dull, TM red, Tonsillar swelling, Tonsillar exudate, Trismus Neck: Positive: Supple, Tenderness @, Enlarged Nodes @ Respiratory: Positive: Chest non-tender, Lungs clear, Normal breath sounds Cardiovascular: Positive: RRR, No Murmur, Pulses Normal Skin Exam: Normal Throat Pain/Nasal Course/Dx - Differential Dx/Diagnosis Provider Diagnosis: Strep pharyngitis Discharge - Sign-Out/Discharge Documenting (check all that apply): Patient Departure All imaging exams completed and their final reports reviewed: No Studies - Discharge Plan Condition: Stable Disposition: HOME Prescriptions: Amoxicillin PO (*) [Amoxicillin 400 MG/5 ML SUSP*] 10 ml PO BID #200 ml Patient Education Materials: Strep Throat (DC) Referrals: No Primary Care Phys,NOPCP [Primary Care Provider] - If Needed - Billing Disposition and Condition Condition: STABLE Disposition: Home
== END 2018-10-16 13:04 | disposition home or self-care (01) ==
LOC: UCCORT 12:14
DX: J02.0 Streptococcal pharyngitis (principal)
CPT/HCPCS: 87651; 99202; G0463

== ENCOUNTER 2018-12-02 09:30 | Emergency (ER) | payer BC ==
[2018-12-02 10:02] VITALS: BP 133/81
--- NOTE | 2018-12-02 10:30 | UC ---
Skin Complaint HPI - HPI Summary HPI Summary: Pt presents with c/o gradual onset of "itchy, burning, erythematous rash" in right axilla. Pt has been using antibiotic ointment and topical corticosteroid cream, with not improvement. - History of Current Complaint Chief Complaint: UCSkin Time Seen by Provider: 12/02/18 10:21 Stated Complaint: SKIN CONCERN Hx Obtained From: Patient Onset/Duration: Gradual Onset, Lasting Weeks - 1, Still Present, Worse Since - onset Skin Exposure Onset/Duration: Weeks Ago - 1 Timing: Constant Onset Severity: Mild Current Severity: Moderate Pain Intensity: 6 Location: Discrete - right axilla Character: Pruritus, Redness Aggravating Factor(s): Touch Alleviating Factor(s): Nothing Associated Signs & Symptoms: Positive: Rash - Allergy/Home Medications Allergies/Adverse Reactions: Allergies Allergy/AdvReac Type Severity Reaction Status Date / Time No Known Allergies Allergy Verified 10/16/18 12:46 PMH/Surg Hx/FS Hx/Imm Hx Previously Healthy: Yes - Surgical History Surgical History: None - Family History Known Family History: Positive: Cardiac Disease Negative: Diabetes - Social History Occupation: Employed Full-time Lives: With Family Alcohol Use: None Substance Use Type: Marijuana Substance Use Comment - Amount & Last Used: occasionally Smoking Status (MU): Never Smoked Tobacco Have You Smoked in the Last Year: No Review of Systems All Other Systems Reviewed And Are Negative: Yes Constitutional: Positive: Negative Skin: Positive: Rash Eyes: Positive: Negative ENT: Positive: Negative Respiratory: Positive: Negative Cardiovascular: Positive: Negative Gastrointestinal: Positive: Negative Genitourinary: Positive: Negative Motor: Positive: Negative Neurovascular: Positive: Negative Musculoskeletal: Positive: Negative Neurological: Positive: Negative Psychological: Positive: Negative Is Patient Immunocompromised?: No Physical Exam Triage Information Reviewed: Yes Appearance: Well-Appearing Vital Signs: Initial Vital Signs Temp 97.5 F 12/02/18 09:59 Pulse 67 12/02/18 09:59 Resp 14 12/02/18 09:59 BP 133/81 12/02/18 09:59 Pulse Ox 100 12/02/18 09:59 Vital Signs Reviewed: Yes Eye Exam: Normal ENT Exam: Normal ENT: Positive: Hearing grossly normal Dental Exam: Normal Neck exam: Normal Respiratory: Positive: No respiratory distress Musculoskeletal Exam: Normal Neurological Exam: Normal Psychological Exam: Normal Skin: Positive: Rashes - right axilla, erythematous, various shades of red, slightly shiny, Course/Dx - Course Course Of Treatment: Pt was advised to follo wup with PCP if no imporvement with treatment plan. Also, insturcted to take oral antihistamine for pruritus c/o - Differential Diagnoses - Skin Complaint Differential Diagnoses: Allergic Reaction, Cellulitis, Tinea, Urticaria - Diagnoses Provider Diagnosis: Tinea Discharge - Sign-Out/Discharge Documenting (check all that apply): Patient Departure All imaging exams completed and their final reports reviewed: No Studies - Discharge Plan Condition: Stable Disposition: HOME Prescriptions: Fluconazole 150 MG TAB* [Diflucan 150 MG TAB*] 150 mg PO DAILY #2 tablet Patient Education Materials: Skin Yeast Infection (ED) Referrals: Caitlin Watt MD [Medical Doctor] - If Needed Sen Varghese MD [Primary Care Provider] - If Needed - Billing Disposition and Condition Condition: STABLE Disposition: Home
== END 2018-12-02 10:36 | disposition home or self-care (01) ==
LOC: UCCORT 09:30
DX: B35.9 Dermatophytosis, unspecified (principal)
CPT/HCPCS: 99212; G0463